=== PATIENT | male | born 1960 | race African-American/Black ===

== ENCOUNTER 2019-07-30 10:35 | Emergency (ER) | payer OTHER ==
[~2019-07-30] VITALS: Ht 177.8 cm; Wt 99.8 kg
[2019-07-30] MEDS ORDERED: AUGMENTIN 875-1 EACH PO (11:52)
[2019-07-30] MEDS ORDERED: PROAIR HFA8.5 GM INH (11:53)
[2019-07-30] MEDS ORDERED: TESSALON PERLE100 MG PO (11:57)
[2019-07-30 12:06] VITALS: BP 147/102
== END 2019-07-30 12:04 | disposition home or self-care (01) ==
LOC: M.ERS 10:35
DX: J01.00 Acute maxillary sinusitis, unspecified (principal); Z88.5 Allergy status to narcotic agent